=== PATIENT | male | born 1965 | race Hispanic/Latino ===

== ENCOUNTER 2018-11-11 12:29 | Emergency (ER) | payer SELFPAY ==
[2018-11-11 13:54] VITALS: BP 145/102
[2018-11-11] MEDS ORDERED: SOLU-Medrol ONE (13:59)
--- NOTE | 2018-11-11 13:59 | Emergency Department Report ---
ED Allergic Reaction HPI - General Chief complaint: Allergic Reaction Stated complaint: REACTION ALLERY Time Seen by Provider: 11/11/18 13:51 Source: patient Mode of arrival: Ambulatory Limitations: No Limitations - History of Present Illness Initial Comments: Pt is a 53 yo male who presents to the ED after an allergic reaction that occurred at 8 AM this morning. 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 starting having edema present to the hand and tongue and around the eyes. states he did have some SOB. pt was given benadryl 50 mg and epinephrine. states his symptoms immediately resolved. pt states that he no longer has any symptoms and was told by [facility] [facility] that he had to be seen in the ED and get a prescription for an epi pen. he denies any known allergies. - Related Data Previous Rx's Medication Instructions Recorded Last Taken Type EPINEPHrine [Epipen] 0.3 mg IJ ONCE #1 auto.injct 11/11/18 Unknown Rx Famotidine [Pepcid] 40 mg PO DAILY PRN #30 tablet 11/11/18 Unknown Rx diphenhydrAMINE [Benadryl CAP] 50 mg PO DAILY PRN #30 capsule 11/11/18 Unknown Rx Allergies Allergy/AdvReac Type Severity Reaction Status Date / Time No Known Allergies Allergy Unverified 11/11/18 13:54 ED Review of Systems ROS: Stated complaint: REACTION ALLERY Other details as noted in HPI Comment: All other systems reviewed and negative ED Past Medical Hx - Past Medical History Previous Medical History?: No - Surgical History Past Surgical History?: No - Medications Home Medications: Home Medications Medication Instructions Recorded Confirmed Last Taken Type EPINEPHrine [Epipen] 0.3 mg IJ ONCE #1 auto.injct 11/11/18 Unknown Rx Famotidine [Pepcid] 40 mg PO DAILY PRN #30 tablet 11/11/18 Unknown Rx diphenhydrAMINE [Benadryl CAP] 50 mg PO DAILY PRN #30 capsule 11/11/18 Unknown Rx ED Physical Exam - General Limitations: No Limitations General appearance: alert, in no apparent distress - Head Head exam: Present: atraumatic, normocephalic - Eye Eye exam: Present: normal appearance - ENT ENT exam: Present: normal orophraynx, mucous membranes moist, other (no tongue edema, no uvular edema, uvula is midline, no angioedema ) - Respiratory Respiratory exam: Present: normal lung sounds bilaterally. Absent: respiratory distress, wheezes, rales, rhonchi, stridor, chest wall tenderness, accessory muscle use, decreased breath sounds, prolonged expiratory - Cardiovascular Cardiovascular Exam: Present: regular rate, normal rhythm. Absent: normal heart sounds, systolic murmur, diastolic murmur, rubs, gallop - Neurological Exam Neurological exam: Present: alert, oriented X3 - Psychiatric Psychiatric exam: Present: normal affect, normal mood - Skin Skin exam: Present: warm, dry, intact. Absent: rash ED Course Vital Signs 11/11/18 13:52 Temperature 98.2 F Pulse Rate 93 H Respiratory 16 Rate Blood Pressure 145/102 O2 Sat by Pulse 97 Oximetry ED Medical Decision Making - Medical Decision Making Pt is a 53 yo male who presents to the ED after an allergic reaction that occurred at 8 AM this morning. 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 starting having edema present to the hand and tongue and around the eyes at 8 AM this morning while at work. states he did have some SOB. pt was given benadryl 50 mg and epinephrine at approximately 9:30 AM this morning at [employer] at his job. states his symptoms immediately resolved. pt states that he no longer has any symptoms at all and was told by [employer] that he had to be seen in the ED and get a prescription for an epi pen. he denies any known allergies. it has been approximately 6 hours since pts initial reaction and pt has had no further reaction. pt given solumedrol IM. pts VSS. on exam: no tongue edema, no uvular edema, uvula is midline, no angioedema, breath sounds are clear BL, no w/r/r, no stridor, no urticaria. pt given a prescription for an epipen, benadryl, and pepcid. discussed with pt to take benadryl and pepcid once he got home. advised pt to please take medication as prescribed. please follow up with a primary care doctor in the next 2-3 days. return to the emergency room immediately or call 911 for any new or worsening symptoms including but not limited to facial swelling, tongue swelling, throat swelling, feeling like your throat is closing, rash, and use your epi pen then call 911. Critical care attestation.: If time is entered above; I have spent that time in minutes in the direct care of this critically ill patient, excluding procedure time. ED Disposition Clinical Impression: Allergic reaction Qualifiers: Encounter type: initial encounter Qualified Code(s): T78.40XA - Allergy, unspecified, initial encounter Angioedema Qualifiers: Encounter type: initial encounter Qualified Code(s): T78.3XXA - Angioneurotic edema, initial encounter Disposition: TO HOME OR SELFCARE Is pt being admited?: No Does the pt Need Aspirin: No Condition: Stable Instructions: Angioedema (ED) Additional Instructions: please take medication as prescribed. please follow up with a primary care doctor in the next 2-3 days. return to the emergency room immediately or call 911 for any new or worsening symptoms including but not limited to facial swelling, tongue swelling, throat swelling, feeling like your throat is closing, rash, and use your epi pen then call 911. Prescriptions: diphenhydrAMINE [Benadryl CAP] 50 mg PO DAILY PRN #30 capsule PRN Reason: allergic reaction EPINEPHrine [Epipen] 0.3 mg IJ ONCE #1 auto.injct Famotidine [Pepcid] 40 mg PO DAILY PRN #30 tablet PRN Reason: allergic reaction Referrals: your, primary care doctor [Other] - 2-3 Days Forms: Work/School Release Form(ED) Time of Disposition: 14:08 Print Language: [id number]
[2018-11-11] MEDS ORDERED: SOLU-Medrol IM ONE (14:01)
== END 2018-11-11 14:25 | disposition home or self-care (01) ==
LOC: ED 12:29
DX: T78.3XXA Angioneurotic edema, initial encounter (principal); Z79.899 Other long term (current) drug therapy; X58.XXXA Exposure to other specified factors, initial encounter
CPT/HCPCS: 96372; 99282; J2930